=== PATIENT | female | born 1975 | race African-American/Black ===

== ENCOUNTER 2019-02-25 13:04 | Emergency (ER) | payer MEDICAID ==
[2019-02-25 13:27] VITALS: BP 130/86
--- NOTE | 2019-02-25 14:25 | ER Document Report ---
ED Medical Screen (RME) - General Chief Complaint: Abdominal Pain Stated Complaint: ABDOMINAL PAIN Time Seen by Provider: 02/25/19 14:21 Primary Care Provider: DANISH GRIMALDO MD [Primary Care Provider] - Follow up as needed Mode of Arrival: Ambulatory Information source: Patient Notes: 43-year-old female presents to ED for right lower quadrant/pelvic pain for the last 3 days. She states it does not hurt to palpation it is hurts when she moves. She denies any nausea vomiting or diarrhea. She states it does hurt when she walks or moves. She states when she goes to the bathroom it hurts. She states she did takes laxatives yesterday and had some stools today. Patient does have a history of ovarian cyst and tubal . 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 Patient is alert oriented respirations regular and unlabored speaking in full sentences walks with even steady gait. I have greeted and performed a rapid initial assessment of this patient. A comprehensive ED assessment and evaluation of the patient, analysis of test results and completion of medical decision making process will be conducted by an additional ED providers. Dictation of this chart was performed using voice recognition software; therefore, there may be some unintended grammatical errors. TRAVEL OUTSIDE OF THE [place] IN LAST 30 DAYS: No - Related Data Allergies/Adverse Reactions: cinoxate [From Sunblock] Adverse Reaction (Verified 01/30/15 08:02) homosalate [From Sunblock] Adverse Reaction (Verified 01/30/15 08:02) octinoxate [From Sunblock] Adverse Reaction (Verified 01/30/15 08:02) oxybenzone [From Sunblock] Adverse Reaction (Verified 01/30/15 08:02) padimate O [From Sunblock] Adverse Reaction (Verified 01/30/15 08:02) titanium dioxide [From Sunblock] Adverse Reaction (Verified 01/30/15 08:02) Past Medical History - Social History Frequency of alcohol use: Social Drug Abuse: None Renal/ Medical History: Reports: Hx Ovarian Cysts. Denies: Hx Peritoneal Dialysis Past Surgical History: Reports: Hx Section, Hx Gynecologic Surgery - left ovarian cyst, Hx Tubal Ligation - Immunizations Hx Diphtheria, Pertussis, Tetanus Vaccination: Yes Physical Exam - Vital signs Vitals: Temp Pulse Resp BP Pulse Ox 98.4 F 85 18 130/86 H 99 02/25/19 13:26 02/25/19 13:26 02/25/19 13:26 02/25/19 13:26 02/25/19 13:26 Course - Vital Signs Vital signs: Temp Pulse Resp BP Pulse Ox 98.4 F 85 18 130/86 H 99 02/25/19 13:26 02/25/19 13:26 02/25/19 13:26 02/25/19 13:26 02/25/19 13:26 Doctor's Discharge - Discharge Referrals: DANISH GRIMALDO MD [Primary Care Provider] - Follow up as needed
[2019-02-25 14:49] LABS: ABSOLUTE EOSINOPHILS # (AUTO) 0.1 10^3/uL (0.0-0.6); ABSOLUTE LYMPHOCYTES (AUTO) 2.3 10^3/uL (0.5-4.7); ABSOLUTE MONOCYTES (AUTO) 0.6 10^3/uL (0.1-1.4); BASOPHILS % (AUTO) 0.4 % (0-2); EOSINOPHILS % (AUTO) 1.2 % (0-6); HEMATOCRIT 32.2 % (36.0-47.0); HEMOGLOBIN 10.8 g/dL (12.0-15.5); LYMPHOCYTES % (AUTO) 28.5 % (13-45); MEAN CORPUSCULAR HEMOGLOBIN 29.5 pg (27.0-33.4); MEAN CORPUSCULAR HGB CONC 33.5 g/dL (32.0-36.0); MEAN CORPUSCULAR VOLUME 88 fl (80-97); MONOCYTES % (AUTO) 7.5 % (3-13); PLATELET COUNT 294 10^3/uL (150-450); RED BLOOD COUNT 3.65 10^6/uL (3.72-5.28); RED CELL DISTRIBUTION WIDTH 13.3 % (11.5-14.0); SEGMENTED NEUTROPHILS % (AUTO) 62.4 % (42-78); TOTAL CELLS COUNTED % (AUTO) 100 %; WHITE BLOOD COUNT 8.1 10^3/uL (4.0-10.5)
[2019-02-25 15:11] LABS: ALANINE AMINOTRANSFERASE 13 U/L (9-52); ALBUMIN 3.8 g/dL (3.5-5.0); ALKALINE PHOSPHATASE 70 U/L (38-126); ANION GAP 9 (5-19); ASPARTATE AMINO TRANSFERASE 14 U/L (14-36); BILIRUBIN,DIRECT 0.2 mg/dL (0.0-0.4); BILIRUBIN,TOTAL 0.2 mg/dL (0.2-1.3); BLOOD UREA NITROGEN 10 mg/dL (7-20); CARBON DIOXIDE 28 mmol/L (22-30); CHLORIDE 103 mmol/L (98-107); GLUCOSE 90 mg/dL (75-110); POTASSIUM 3.3 mmol/L (3.6-5.0); SODIUM 140.2 mmol/L (137-145); TOTAL PROTEIN 7.3 g/dL (6.3-8.2)
--- NOTE | 2019-02-25 15:54 | RADIOLOGY REPORT (SQ) ---
EXAM DESCRIPTION: U/S NON-OB PELVIS TV W/O DOP COMPLETED DATE/TIME: 02/25/2019 3:41 pm REASON FOR STUDY: right pelvic pain COMPARISON: None. TECHNIQUE: Dynamic and static grayscale images acquired of the pelvis via transvaginal approach and recorded on PACS. Additional selected color Doppler and spectral images recorded. LIMITATIONS: None. FINDINGS: UTERUS: Uterus is heterogeneous in echotexture. There is a small fundal fibroid measured under 2 cm. ENDOMETRIAL STRIPE: IUD is in place. There are echogenic foci within the endometrium probably repres enting calcification. CERVIX: No nabothian cysts. RIGHT OVARY AND DOPPLER: There is a small complex cyst measured 1.7 x 1.3 x 1.3 cm. There is normal flow. LEFT OVARY AND DOPPLER: There is a small complex left ovarian cyst measured 2.2 x 1.4 x 1.6 cm. Norm al flow. FREE FLUID: There is a small amount of free fluid present. OTHER: No other significant finding. MEASUREMENTS: UTERUS: 8.2 x 5.9 x 5.0 cm. ENDOMETRIAL STRIPE: 5.8 mm. RIGHT OVARY: 4.9 x 2.7 x 1.5 cm. LEFT OVARY: 3.1 x 2.5 x 1.9 cm. IMPRESSION: Small complex bilateral ovarian cysts as described. The largest is on the left and hank ures 2.2 x 1.4 x 1.[address] cm[address] is in place. There is a small amount of free fluid in the posterior cu l-de-sac. TECHNICAL DOCUMENTATION: JOB ID: [id number] [employer]- All Rights Reserved Reading location - IP/workstation name: [email or web address]
--- NOTE | 2019-02-25 16:53 | ER Document Report ---
ED General - General Chief Complaint: Abdominal Pain Stated Complaint: ABDOMINAL PAIN Time Seen by Provider: 02/25/19 14:21 Primary Care Provider: DANISH GRIMALDO MD [ACTIVE STAFF] - Follow up in 1 week Mode of Arrival: Ambulatory TRAVEL OUTSIDE OF THE [place] IN LAST 30 DAYS: No - HPI Notes: 43-year-old female to the emergency department with complaints of right-sided lower abdominal pain that began 3 days ago. She states that she thinks she may be constipated. She states that the pain feels mainly like pressure. She states it does not hurt when she pushes on it. She states it hurts more with movement. She states she attempted laxatives last night. She had an unsatisfactory bowel movement last night and this morning. She denies any fevers, chills, chest pain, shortness of breath, urinary complaints, vaginal discharge, headaches. She does admit to a history of ovarian cysts. She states that she has been taking BC powder for her pain and it does help her. - Related Data Allergies/Adverse Reactions: cinoxate [From Sunblock] Adverse Reaction (Verified 01/30/15 08:02) homosalate [From Sunblock] Adverse Reaction (Verified 01/30/15 08:02) octinoxate [From Sunblock] Adverse Reaction (Verified 01/30/15 08:02) oxybenzone [From Sunblock] Adverse Reaction (Verified 01/30/15 08:02) padimate O [From Sunblock] Adverse Reaction (Verified 01/30/15 08:02) titanium dioxide [From Sunblock] Adverse Reaction (Verified 01/30/15 08:02) Past Medical History - General Information source: Patient - Social History Smoking Status: Never Smoker Frequency of alcohol use: Social Drug Abuse: None Family History: Reviewed & Not Pertinent Patient has suicidal ideation: No Patient has homicidal ideation: No Renal/ Medical History: Reports: Hx Ovarian Cysts. Denies: Hx Peritoneal Dialysis Past Surgical History: Reports: Hx Section, Hx Gynecologic Surgery - left ovarian cyst, Hx Tubal Ligation - Immunizations Hx Diphtheria, Pertussis, Tetanus Vaccination: Yes Review of Systems - Review of Systems Constitutional: denies: Chills, Fever EENT: No symptoms reported Cardiovascular: denies: Chest pain, Palpitations, Syncope, Dizziness, Lightheaded Respiratory: denies: Cough, Short of breath Gastrointestinal: See HPI, Abdominal pain, Constipation. denies: Diarrhea, Nausea, Vomiting, Poor appetite, Poor fluid intake Genitourinary: denies: Frequency Female Genitourinary: denies: Vaginal bleeding Musculoskeletal: No symptoms reported Skin: No symptoms reported Hematologic/Lymphatic: No symptoms reported Neurological/Psychological: No symptoms reported -: Yes All other systems reviewed and negative Physical Exam - Vital signs Vitals: Temp Pulse Resp BP Pulse Ox 98.4 F 85 18 130/86 H 99 02/25/19 13:26 02/25/19 13:26 02/25/19 13:26 02/25/19 13:26 02/25/19 13:26 Interpretation: Normal - General General appearance: Appears well, Alert - HEENT Head: Normocephalic, Atraumatic Eyes: Normal Pupils: PERRL - Respiratory Respiratory status: No respiratory distress Chest status: Nontender Breath sounds: Normal Chest palpation: Normal - Cardiovascular Rhythm: Regular Heart sounds: Normal auscultation Murmur: No - Abdominal Inspection: Normal, Obese Distension: No distension. No: Tympanitic Bowel sounds: Normal Tenderness: Nontender - The abdomen is soft, nontender with palpation. There is negative McBurney's point. There is no right lower quadrant tenderness to palpation. There is no Loja sign. There is no guarding, rebound, CVA tenderness. No: McBurney's point, Loja's sign, Guarding, Rebound Organomegaly: No organomegaly - Back Back: Normal, Nontender - Extremities General lower extremity: Wai's sign - Neurological Neuro grossly intact: Yes Cognition: Normal Orientation: AAOx4 [place] Coma Scale Eye Opening: Spontaneous [place] Coma Scale Verbal: Oriented [place] Coma Scale Motor: Obeys Commands Gennaro Coma Scale Total: 15 Speech: Normal Motor strength normal: LUE, RUE, LLE, RLE Sensory: Normal - Psychological Associated symptoms: Normal affect, Normal mood - Skin Skin Temperature: Warm Skin Moisture: Dry Skin Color: Normal Course - Re-evaluation Re-evalutation: Progress: Noted patient's ultrasound but she is really not very tender on abdominal exam and she discusses a more constipation/bowel movement disorder. Will send for plain film x-ray to evaluate. Reviewed x-raysthere is a nonobstructive nonspecific bowel gas pattern. 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 On discharge her abdomen remains soft. We will send home with Colace and magnesium citrate. I have encouraged her to push fluids and increase her fiber. We will have her follow with her primary care physician at the beginning of next week. I have encouraged her to return in the next 8 to 24 hours of her symptoms worsen with fevers, chills, worsening abdominal pain, vomiting, blood in vomit, blood in stool, or any other concerns. - Vital Signs Vital signs: Temp Pulse Resp BP Pulse Ox 98.2 F 80 18 130/86 H 100 02/25/19 17:56 02/25/19 17:56 02/25/19 17:56 02/25/19 13:26 02/25/19 17:56 - Laboratory Result Diagrams: 02/25/19 14:25 02/25/19 14:25 Laboratory results interpreted by me: 02/25/19 02/25/19 14:25 14:25 RBC 3.65 L Hgb 10.8 L Hct 32.2 L Potassium 3.3 L - Diagnostic Test Radiology reviewed: Image reviewed, Reports reviewed Discharge - Discharge Clinical Impression: Right sided abdominal pain, Bowel movement symptom Ovarian cyst Qualifiers: Laterality: bilateral Qualified Code(s): N83.201 - Unspecified ovarian cyst, right side Condition: Stable Disposition: HOME, SELF-CARE Instructions: Abdominal Pain ([facility]) Additional Instructions: ABDOMINAL PAIN: There are many causes of abdominal pain. Pain can mean a serious problem requiring surgery (such as appendicitis). It can also be an innocent problem that goes away on its own (such as a viral infection). Often, time must pass to determine the cause of pain. The physician does not feel that hospitalization is necessary, at present. Things may change within the next 24 hours. Call the doctor or come back for re- examination if any problems occur, such as: (1) Pain that becomes more severe, steady, or becomes concentrated in one specific area. Also, pain that is more severe with movement or coughing. (2) Vomiting that persists or becomes more frequent. (3) Blood in the vomitus, urine, or bowel movements. Blood in the stool may have a tarry or black appearance. (4) Shaking chills or fever greater than 100 degrees F. (5) The abdomen becomes more distended or swollen. (6) Bowel movements cease. (7) Failure to improve as expected. NORMAL EXAM AND WORKUP: At this time, your examination and workup show no significant abnormality. No significant abnormal physical findings are noted. All laboratory, EKG, and imaging (x-ray, CT scans, ultrasound) studies that were ordered show no significant abnormality. Although your examination and all studies that were ordered showed no significant abnormal finding, there are no examinations and no studies that are 100% accurate. There is always the possibility that some abnormality could exist and not be detected with physical examination or within the limits and capabilities of laboratory and other studies. You should return or follow up as you were instructed on your visit today for further evaluation if your symptoms do not resolve. FOLLOW-UP CARE: If you have been referred to a physician for follow-up care, call the physicians office for an appointment as you were instructed or within the next two days. If you experience worsening or a significant change in your symptoms, notify the physician immediately or return to the Emergency Department at any time for re-evaluation. Prescriptions: Docusate Sodium [Colace] 100 mg PO BID #20 capsule Magnesium Citrate 296 ml PO ONCE PRN #[id number] solution PRN Reason: Referrals: DANISH GRMIALDO MD [ACTIVE STAFF] - Follow up in 1 week
--- NOTE | 2019-02-25 18:34 | RADIOLOGY REPORT (SQ) ---
EXAM DESCRIPTION: ABDOMEN 2 VIEWS COMPLETED DATE/TIME: 02/25/2019 5:50 pm REASON FOR STUDY: abdominal pressure/pain COMPARISON: None. NUMBER OF VIEWS: One view. TECHNIQUE: Supine radiographic image of the abdomen acquired. LIMITATIONS: None. FINDINGS: BOWEL GAS PATTERN: Non-obstructive bowel gas pattern. No dilated loops. CALCIFICATIONS: No suspicious calcifications. SOFT TISSUES: No gross mass or suggestion of organomegaly. HARDWARE: IUD present in expected position. BONES: No acute fracture. No worrisome bone lesions. OTHER: No other significant finding. IMPRESSION: NO RADIOGRAPHIC EVIDENCE FOR ACUTE ABDOMINAL DISEASE. TECHNICAL DOCUMENTATION: JOB ID: [id number] [place]-72 2010 [employer]- All Rights Reserved Reading location - IP/workstation name: [email or web address]
== END 2019-02-25 17:56 | disposition home or self-care (01) ==
LOC: ER 13:04
DX: K59.00 Constipation, unspecified (principal); N83.201 Unspecified ovarian cyst, right side; N83.202 Unspecified ovarian cyst, left side
CPT/HCPCS: 36415; 74019; 76830; 80053; 84703; 85025; 99284

== ENCOUNTER 2019-04-07 07:29 | Emergency (ER) | payer MEDICAID ==
--- NOTE | 2019-04-07 08:25 | ER Document Report ---
HPI - HPI Patient complains to provider of: right flank pain Time Seen by Provider: 04/07/19 08:04 Onset/Duration: Constant Quality of pain: Cramping, Fullness Severity: Moderate Pain Level: 3 Context: 43 yr old female patient, with the listed pmh, here for RUQ abd/side pain that radiates to her right flank pain x 3 days. hx of similar before in the past and has seen GI, Dr. Jang, for this about 3wks ago who did and EGD and colonoscopy and she was told everything was normal other than some gastritis and she was started on linzess for her chronic constipation and also omeprazole. states sx haven't improved. she does still use bc powders. No abdominal surgeries. she does have an IUD. No history of fibroids, endometriosis, or renal stones. Normal bowel movements now. No UTI symptoms. No URI symptoms. No recent antibiotics or steroids. No history of diabetes or asthma. No vaginal discharge/complaints/lesions or concerns for STDs and does not want a pelvic exam. No ripping or tearing sensation. Hasn't taken anything else for her symptoms. No other excessive NSAID use, Tylenol use, or EtOH. No prior history of gallbladder disease, pancreatitis, ulcers, GI bleed IBS, Crohn's, or UC. no change in color or caliber or stool. no blood thinners. no fall or trauma. states pain is worse with moving and sitting up. pain got worse after she ate some hot fries last night. called dr jang's office and they told her to come in to get a CT scan of her abdomen/pelvis per pt. no other associated sx. Similar symptoms previously: Yes Recently seen / treated by doctor: Yes - ROS Systems Reviewed and Negative: Yes All other systems reviewed and negative - to include 10 systems, unless mentioned in the hpi - REPRODUCTIVE Reproductive: DENIES: : Past Medical History - General Information source: Patient - Social History Smoking Status: Never Smoker Frequency of alcohol use: Occasional Drug Abuse: None Family History: Reviewed & Not Pertinent Patient has suicidal ideation: No Patient has homicidal ideation: No Endocrine Medical History: Reports: None Renal/ Medical History: Reports: Hx Ovarian Cysts. Denies: Hx Kidney Stones, Hx Peritoneal Dialysis GI Medical History: Reports: Hx Gastritis, Hx Irritable Bowel, Hx Colonoscopy, Hx Endoscopy Past Surgical History: Reports: Hx Section, Hx Gynecologic Surgery - left ovarian cyst, Hx Tubal Ligation - Immunizations Immunizations up to date: Yes Hx Diphtheria, Pertussis, Tetanus Vaccination: Yes Vertical Provider Document - CONSTITUTIONAL Exam Limitations: No Limitations General Appearance: No Apparent Distress Notes: >>>> PHYSICAL_EXAM: GENERAL_APPEARANCE: well_nourished, alert, cooperative, no_acute_distress, no_obvious_discomfort. Pleasant, middle aged black female, smiling, speaking in full sentences, in no sign of pain or resp distress, easily sitting up, no one is with her VITALS: reviewed, see vital signs table. HEAD: normocephalic, atraumatic. no dixon signs. no raccoon eyes. EYES: PERRL, EOMI, (-)scleral icterus. NOSE: no_nasal_discharge. MOUTH: (-)decreased moisture. THROAT: no_tonsilar_inflammation/hypertrophy/exudate NECK: supple, no_neck_tenderness, full rom. full strength. no meningeal signs. BACK: no midline_back_tenderness. no step offs or deformities CHEST_WALL: no_chest_tenderness. LUNGS: no_wheezing, (-)accessory muscle use, good air exchange bilateral. HEART: normal_rate, normal_rhythm, ABDOMEN: normal_BS, soft, abdomen-diffuse, mildly ttp in the right upper quadrant and right side of abd and over right distal lateral ribs, no crepitation, no rash, no overlying skin changes, (-)guarding, (-)rebound, no distension or peritoneal signs. neg murphys. neg mcburneys. no cva tenderness. neg heel strike. neg obturator. neg psoas. neg rovsign. PELVIC: deferred RECTAL: deferred EXTREMITIES: strength 5/5 in all_extremities, good pulses in all_extremities, no_edema, no_swelling\tenderness. full rom. normal gait. 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 brisk cap refill. SKIN: warm, dry, good_color, no_rash. no grossly visible overlying skin changes to suggest trauma NEURO: motor_intact, sensory_intact. MENTAL_STATUS: normal_affect, speech_clear, oriented_X_3, responds_appropri ately to questions. - INFECTION CONTROL TRAVEL OUTSIDE OF THE [place] IN LAST 30 DAYS: No Course - Re-evaluation Re-evalutation: 04/07/19 08:11 pt here for ruq/side/flank pain x 3 days. sent over by her GI doc for a CT abd/pelv, labs were unremarkable. ct abd/pelv with IV contrast showed a small calcified stone in the gallbladder neck without any other acute findings and was otherwise neg per rad and reviewed by myself. GB US was then done to r/o acute GB and this just showed cholelithiasis without acute cholecystitis per rad and reviewed by myself. she responded well to tx listed. serial abd exams remain benign. advised sx care. bland diet. drink plenty of fluids. advised to f/u with pcp/gi in 1-2 days. return for any worsening symptoms. vss. well appearing. satting well on ra. neurononfocal. pt understands and agrees to plan. On reexam, pt improved with tx listed. remained stable. nontoxic. well appearing. pain controlled. tolerating po. requesting to go home. serial abd exams remain benign. case discussed with ER Attending, Dr. Salazar, who directed and agrees with plan of care and advised no further workup indicated at this time and pt is stable for dc home with close f/u with pcp/specialist. Documentation achieved through voice recording which my lead to some occasional accidental typographical errors. Extensive efforts have been made to proof read documentation to make sure these are the least as possible. 04/07/19 08:35 04/07/19 13:07 Category Date Time Status CT ABD/PELVIS WITH IV ONLY [CT] Stat Exams 04/07/19 08:27 Ordered Gallbladder Ultrasound [U/S ABDOMEN LIMITED W/O DOP] [ Exams 04/07/19 11:07 Ordered US] Stat CBC WITH DIFF [HEME] Stat Lab 04/07/19 08:12 Ordered COMPREHENSIVE METABOLIC PANEL [CHEM] Stat Lab 04/07/19 08:12 Ordered HCG QUALITATIVE, URINE [URIN] Stat Lab 04/07/19 08:12 Uncollected LIPASE [CHEM] Stat Lab 04/07/19 08:12 Ordered URINALYSIS [URIN] Stat Lab 04/07/19 08:12 Uncollected Ketorolac Tromethamine [Toradol Inj/Pf 30 mg/1 ml Sdv] Med 04/07/19 08:28 Once 30 mg IV NOW ONE Normal Saline 1000 ml [NaCl 0.9% 1000 ml IV Soln] 1,000 Med 04/07/19 08:27 Ordered ml IV BOLUS Ondansetron HCl/Pf [Zofran Inj/Pf 4 mg/2 ml Sdv] Med 04/07/19 08:28 Once 4 mg IV NOW ONE - Vital Signs Vital signs: Temp Pulse Resp BP Pulse Ox 98.2 F 74 14 130/86 H 99 04/07/19 07:36 04/07/19 07:36 04/07/19 07:36 04/07/19 07:36 04/07/19 07:36 04/07/19 13:10 Temp Pulse Resp BP Pulse Ox 04/07/19 07:36 98.2 F 74 14 130/86 H 99 - Laboratory Result Diagrams: 04/07/19 08:40 04/07/19 08:40 Laboratory results interpreted by me: 04/07/19 13:10 Labs- Entire Visit 04/07/19 04/07/19 04/07/19 08:40 08:40 08:40 WBC 6.6 RBC 3.95 Hgb 11.5 L Hct 35.0 L MCV 89 MCH 29.0 MCHC 32.8 RDW 13.7 Plt Count 287 Lymph % (Auto) 28.9 [place] % (Auto) 7.3 Eos % (Auto) 1.7 Baso % (Auto) 1.1 Absolute Neuts (auto) 4.0 Absolute Lymphs (auto) 1.9 Absolute Monos (auto) 0.5 Absolute Eos (auto) 0.1 Absolute Basos (auto) 0.1 Seg Neutrophils % 61.0 Sodium 139.5 Potassium 4.1 Chloride 104 Carbon Dioxide 25 Anion Gap 11 BUN 13 Est GFR ( Amer) > 60 Est GFR (MDRD) Non-Af > 60 Glucose 83 Calcium 9.1 Total Bilirubin 0.5 Direct Bilirubin 0.2 Neonat Total Bilirubin Not Reportable Neonat Direct Bilirubin Not Reportable Neonat Indirect Bili Not Reportable AST 20 ALT 9 Alkaline Phosphatase 68 Total Protein 7.9 Albumin 4.3 Lipase 86.9 Urine Color Urine Appearance Urine pH Ur Specific [place] Urine Protein Urine Glucose (UA) Urine Ketones Urine Blood Urine Nitrite Urine Bilirubin Urine Urobilinogen Ur Leukocyte Esterase Urine WBC (Auto) Urine RBC (Auto) U Hyaline Cast (Auto) Squamous Epi Cells Auto Urine Mucus (Auto) Serum Creatinine 0.74 Urine Ascorbic Acid Urine HCG, Qual 04/07/19 08:40 WBC RBC Hgb Hct MCV MCH MCHC RDW Plt Count Lymph % (Auto) [place] % (Auto) Eos % (Auto) Baso % (Auto) Absolute Neuts (auto) Absolute Lymphs (auto) Absolute Monos (auto) Absolute Eos (auto) Absolute Basos (auto) Seg Neutrophils % Sodium Potassium Chloride Carbon Dioxide Anion Gap BUN Est GFR ( Amer) Est GFR (MDRD) Non-Af Glucose Calcium Total Bilirubin Direct Bilirubin Neonat Total Bilirubin Neonat Direct Bilirubin Neonat Indirect Bili AST ALT Alkaline Phosphatase Total Protein Albumin Lipase Urine Color YELLOW Urine Appearance CLEAR Urine pH 5.0 Ur Specific [place] 1.019 Urine Protein NEGATIVE Urine Glucose (UA) NEGATIVE Urine Ketones NEGATIVE Urine Blood NEGATIVE Urine Nitrite NEGATIVE Urine Bilirubin NEGATIVE Urine Urobilinogen NEGATIVE Ur Leukocyte Esterase NEGATIVE Urine WBC (Auto) 1 Urine RBC (Auto) 1 U Hyaline Cast (Auto) 1 Squamous Epi Cells Auto 2 Urine Mucus (Auto) OCC Serum Creatinine Urine Ascorbic Acid NEGATIVE Urine HCG, Qual NEGATIVE - Diagnostic Test Radiology reviewed: Image reviewed, Reports reviewed Radiology results interpreted by me: 04/07/19 13:10 Abdomen/Pelvis CT 04/07/19 08:27 IMPRESSION: 1. Trace free fluid within the pelvis, likely physiologic. 2. No other evidence of acute intra-abdominal/pelvic process. Abdomen Ultrasound 04/07/19 11:07 IMPRESSION: Small gallstones in the gallbladder. No gallbladder wall thickening. No pericholecystic fluid. No biliary ductal dilation. No acute ultrasound findings of the right upper quadrant to explain pain. Discharge - Discharge Clinical Impression: Biliary colic Cholelithiasis Qualifiers: Cholelithiasis location: gallbladder Cholecystitis presence: without cho lecystitis Biliary obstruction: without biliary obstruction Qualified Code(s): K80.20 - Calculus of gallbladder without cholecystitis without obstruction Abdominal pain Qualifiers: Abdominal location: right upper quadrant Qualified Code(s): R10.11 - Right upper quadrant pain Condition: Good Disposition: HOME, SELF-CARE Instructions: Abdominal Pain ([facility]), Gallbladder Disease ([facility]) Additional Instructions: Follow-up with PCP/GI in 1 to 2 days. Return for any worsening symptoms. tylenol as needed for any pain or fever if not allergic. take the medication as prescribed. drink plenty of fluids. bland diet. Referrals: SAURABH JANG MD [ACTIVE STAFF] - Follow up tomorrow BLAIRE HESS MD [Primary Care Provider] - Follow up tomorrow
[2019-04-07] MEDS ORDERED: NORMAL SALINE 1000 ML 1,000 ML IV ONE (08:27)
[2019-04-07] MEDS ORDERED: ONDANSETRON HCL INJ/PF 4 MG/2 ML SDV IV ONE (08:28)
[2019-04-07] MEDS ORDERED: KETOROLAC TROMETHAMINE INJ/PF 30 MG/1 ML SDV IV ONE (08:28)
[2019-04-07 09:19] LABS: APPEARANCE,URINE CLEAR; BILIRUBIN,URINE NEGATIVE (NEGATIVE); COLOR,URINE YELLOW; GLUCOSE, URINE NEGATIVE (NEGATIVE); KETONES,URINE NEGATIVE (NEGATIVE); LEUKOCYTE ESTERASE,URINE NEGATIVE (NEGATIVE); NITRITE,URINE NEGATIVE (NEGATIVE); PROTEIN,URINE NEGATIVE (NEGATIVE); URINE SPECIFIC GRAVITY 1.019; UROBILINOGEN,URINE NEGATIVE mg/dL (<2.0)
[2019-04-07 09:28] LABS: ALBUMIN 4.3 g/dL (3.5-5.0); ALKALINE PHOSPHATASE 68 U/L (38-126); ASPARTATE AMINO TRANSFERASE 20 U/L (14-36); BILIRUBIN,DIRECT 0.2 mg/dL (0.0-0.4); BILIRUBIN,TOTAL 0.5 mg/dL (0.2-1.3); TOTAL PROTEIN 7.9 g/dL (6.3-8.2)
--- NOTE | 2019-04-07 10:45 | RADIOLOGY REPORT (SQ) ---
EXAM DESCRIPTION: CT ABD/PELVIS WITH IV ONLY COMPLETED DATE/TIME: 04/07/2019 10:33 am REASON FOR STUDY: RUQ and side pain COMPARISON: 02/25/2019 TECHNIQUE: CT scan of the abdomen and pelvis performed using helical scanning technique with dynamic intravenous contrast injection. No oral contrast. Images reviewed with lung, soft tissue, and bone windows. Reconstructed coronal and sagittal MPR images reviewed. Delayed images for evaluation of the urinary system also acquired. All images stored on PACS. All CT scanners at this facility use dose modulation, iterative reconstruction, and/or weight based d osing when appropriate to reduce radiation dose to as low as reasonably achievable (ALARA). [facility]: Dose Right [facility]: CareDose [facility]: Dose Right [facility]: Teradose 4D [facility]: Unique Microguides CONTRAST TYPE AND DOSE: contrast/concentration: Isovue 350.00 mg/ml; Total Contrast Delivered: 98.0 ml; Total Saline Delivered: 40.1 ml RENAL FUNCTION: None required. The patient is less than 50 years old. RADIATION DOSE: CT Rad equipment meets quality standard of care and radiation dose reduction techniq ues were employed. CTDIvol: 7.8 - 8.9 mGy. DLP: 900 mGy-cm.. LIMITATIONS: None. FINDINGS: LOWER CHEST: No significant findings. No nodules or infiltrates. LIVER: Normal size. No masses. No dilated ducts. SPLEEN: Normal size. No focal lesions. PANCREAS: No masses. No significant calcifications. No adjacent inflammation or peripancreatic fluid collections. Pancreatic duct not dilated. GALLBLADDER: Single punctate calcific density within the gallbladder lack, likely calcified stone. N o gallbladder dilation, pericholecystic fluid or wall thickening. ADRENAL GLANDS: No significant masses or asymmetry. RIGHT KIDNEY AND URETER: No definite solid masses. There subcentimeter hypodense cortical lesions, l ikely cyst but difficult to characterize secondary to size. No significant calcifications. No hyd ronephrosis or hydroureter. LEFT KIDNEY AND URETER: No solid masses. No significant calcifications. No hydronephrosis or hydr oureter. AORTA AND VESSELS: No aneurysm. No dissection. Renal arteries, SMA, celiac without stenosis. RETROPERITONEUM: No retroperitoneal adenopathy, hemorrhage or masses. BOWEL AND PERITONEAL CAVITY: No masses or inflammatory changes. No free fluid or peritoneal masses. APPENDIX: Normal. PELVIS: Trace free fluid within the pelvis, likely physiologic. Decompressed urinary bladder. Femin ine hygiene product within the vaginal canal. Retroverted uterus with IUD within the uterine canal. ABDOMINAL WALL: No masses. No hernias. BONES: No significant or acute findings. OTHER: No other significant finding. IMPRESSION: 1. Trace free fluid within the pelvis, likely physiologic. 2. No other evidence of acute intra-abdominal/pelvic process. TECHNICAL DOCUMENTATION: JOB ID: [id number] Quality ID # [id number]: Final reports with documentation of one or more dose reduction techniques (e.g., Au tomated exposure control, adjustment of the mA and/or kV according to patient size, use of iterative reconstruction technique) 2010 [employer]- All Rights Reserved Reading location - IP/workstation name: [email or web address]
--- NOTE | 2019-04-07 12:43 | RADIOLOGY REPORT (SQ) ---
EXAM DESCRIPTION: U/S ABDOMEN LIMITED W/O DOP COMPLETED DATE/TIME: 04/07/2019 12:28 pm REASON FOR STUDY: ruq pain COMPARISON: None. TECHNIQUE: Dynamic and static grayscale images acquired of the abdomen and recorded on PACS. Additio kenyatta selected color Doppler and spectral images recorded. LIMITATIONS: None. FINDINGS: PANCREAS: No masses. Visualized pancreatic duct normal caliber. LIVER: No masses. Echotexture normal. LIVER VASCULATURE: Normal directional flow of the main portal vein and hepatic veins. GALLBLADDER: Small gallstones in the gallbladder. Normal wall thickness. No pericholecystic fluid. ULTRASOUND-DETECTED HENSON'S SIGN: Negative. INTRAHEPATIC DUCTS AND COMMON DUCT: CBD and intrahepatic ducts normal caliber. No filling defects. INFERIOR VENA CAVA: Normal flow. AORTA: No aneurysm. RIGHT KIDNEY: Normal size. Normal echogenicity. No solid or suspicious masses. No hydronephrosis. No calcifications. PERITONEAL AND RIGHT PLEURAL SPACE: No ascites or effusions. OTHER: No other significant findings. IMPRESSION: Small gallstones in the gallbladder. No gallbladder wall thickening. No pericholecysti c fluid. No biliary ductal dilation. No acute ultrasound findings of the right upper quadrant to ex plain pain. TECHNICAL DOCUMENTATION: JOB ID: [id number] [employer]- All Rights Reserved Reading location - IP/workstation name: [email or web address]
[2019-04-07 15:19] LABS: ANION GAP 11 (5-19); BLOOD UREA NITROGEN 13 mg/dL (7-20); CALCIUM 9.1 mg/dL (8.4-10.2); CARBON DIOXIDE 25 mmol/L (22-30); CHLORIDE 104 mmol/L (98-107); GLUCOSE 83 mg/dL (75-110); POTASSIUM 4.1 mmol/L (3.6-5.0)
[2019-04-07 15:32] LABS: ABSOLUTE BASOPHILS # (AUTO) 0.1 10^3/uL (0.0-0.2); ABSOLUTE EOSINOPHILS # (AUTO) 0.1 10^3/uL (0.0-0.6); ABSOLUTE LYMPHOCYTES (AUTO) 1.9 10^3/uL (0.5-4.7); ABSOLUTE MONOCYTES (AUTO) 0.5 10^3/uL (0.1-1.4); BASOPHILS % (AUTO) 1.1 % (0-2); EOSINOPHILS % (AUTO) 1.7 % (0-6); HEMOGLOBIN 11.5 g/dL (12.0-15.5); LYMPHOCYTES % (AUTO) 28.9 % (13-45); MEAN CORPUSCULAR HGB CONC 32.8 g/dL (32.0-36.0); MEAN CORPUSCULAR VOLUME 89 fl (80-97); MONOCYTES % (AUTO) 7.3 % (3-13); PLATELET COUNT 287 10^3/uL (150-450); RED BLOOD COUNT 3.95 10^6/uL (3.72-5.28); RED CELL DISTRIBUTION WIDTH 13.7 % (11.5-14.0); TOTAL CELLS COUNTED % (AUTO) 100 %; WHITE BLOOD COUNT 6.6 10^3/uL (4.0-10.5)
[2019-04-07 18:03] VITALS: BP 138/92
== END 2019-04-07 13:31 | disposition home or self-care (01) ==
LOC: ER 07:29
DX: K80.20 Calculus of gallbladder without cholecystitis without obstruction (principal); K59.00 Constipation, unspecified; K29.70 Gastritis, unspecified, without bleeding; R10.11 Right upper quadrant pain; Z98.890 Other specified postprocedural states; Z97.5 Presence of (intrauterine) contraceptive device
CPT/HCPCS: 36415; 83690; 85025; 81025; 80053; 81001; 76705; 74177; J1885; J2405; J7030; 96361; 96374; 96375; 99284

== ENCOUNTER 2019-05-13 08:30 | Day surgery (SDC) | payer MEDICAID ==
[2019-05-03 10:46] LABS: HEMATOCRIT 34.4 % (36.0-47.0); HEMOGLOBIN 11.6 g/dL (12.0-15.5); MEAN CORPUSCULAR HEMOGLOBIN 29.2 pg (27.0-33.4); MEAN CORPUSCULAR HGB CONC 33.7 g/dL (32.0-36.0); MEAN CORPUSCULAR VOLUME 87 fl (80-97); PLATELET COUNT 258 10^3/uL (150-450); RED BLOOD COUNT 3.96 10^6/uL (3.72-5.28); RED CELL DISTRIBUTION WIDTH 13.8 % (11.5-14.0); WHITE BLOOD COUNT 5.8 10^3/uL (4.0-10.5)
[2019-05-03 11:09] LABS: ALBUMIN 4.1 g/dL (3.5-5.0); ALKALINE PHOSPHATASE 65 U/L (38-126); AMYLASE 57 U/L (30-110); ANION GAP 11 (5-19); ASPARTATE AMINO TRANSFERASE 24 U/L (14-36); BILIRUBIN,DIRECT 0.2 mg/dL (0.0-0.4); BILIRUBIN,TOTAL 0.7 mg/dL (0.2-1.3); BLOOD UREA NITROGEN 13 mg/dL (7-20); CALCIUM 9.4 mg/dL (8.4-10.2); CARBON DIOXIDE 25 mmol/L (22-30); CHLORIDE 103 mmol/L (98-107); GLUCOSE 102 mg/dL (75-110); POTASSIUM 3.7 mmol/L (3.6-5.0); TOTAL PROTEIN 7.7 g/dL (6.3-8.2)
[~2019-05-13 08:30] MED LIST: ACETAMINOPHEN 325 MG TABLET PO PRN; CEFAZOLIN 1 GM/D5W RTU 1 GM/50 ML RTUPB IV PRN; LACTATED RINGERS 1000 ML IV PRN; LIDOCAINE 0.5% INJ-PF (5 MG/ML) 50 ML SDV SUBCUT PRN; METRONIDAZOLE 500 MG/NS RTU 500 MG/100 ML RTUPB IV PRN
[2019-05-13] MEDS ORDERED: BUPIVACAINE HCL 0.5%-EPI 1:200000 INJ/PF 30 ML VIAL ONE (10:56)
[2019-05-13] MEDS ORDERED: METRONIDAZOLE 500 MG/NS RTU 500 MG/100 ML RTUPB IV ONE (11:14)
[2019-05-13] MEDS ORDERED: CEFAZOLIN INJ 1 GM VIAL ONE (11:15)
[2019-05-13] MEDS ORDERED: MIDAZOLAM 2 MG/2 ML INJ ONE (12:20)
[2019-05-13] MEDS ORDERED: HYDROMORPHONE HCL INJ/PF 2 MG/ML AMPULE ONE (12:20)
[2019-05-13] MEDS ORDERED: PROPOFOL INJ 200 MG/20 ML VIAL IV ONE (12:21)
[2019-05-13] MEDS ORDERED: OXYCODONE-ACETAMINOPHEN 5-325 MG TABLET PO PRN ×3 (13:20→13:48)
[2019-05-13] MEDS ORDERED: DIPHENHYDRAMINE HCL 50 MG/ML VIAL IV PRN (13:20)
[2019-05-13] MEDS ORDERED: FENTANYL CITRATE INJ/PF 100 MCG/2 ML AMPUL IV PRN ×3 (13:20)
[2019-05-13] MEDS ORDERED: MEPERIDINE HCL/PF INJ 25 MG/1 ML DISP.SYRIN IV PRN (13:20)
[2019-05-13] MEDS ORDERED: ONDANSETRON HCL INJ/PF 4 MG/2 ML SDV IV PRN (13:20)
[2019-05-13] MEDS ORDERED: PROMETHAZINE HCL INJ 25 MG/1 ML VIAL IV PRN ×2 (13:20)
--- NOTE | 2019-05-13 13:46 | Operative Report ---
Nonrecallable Operative Report DATE OF SURGERY: 05/13/19 PREOPERATIVE DIAGNOSIS: chlolelilthiasis POSTOPERATIVE DIAGNOSIS: cholelithiasis OPERATION: laparoscopic cholecystectomy SURGEON: GHANSHYAM CARABALLO ANESTHESIA: GA TISSUE REMOVED OR ALTERED: gallbladder COMPLICATIONS: none ESTIMATED BLOOD LOSS: 10cc. INTRAOPERATIVE FINDINGS: see note PROCEDURE: After obtaining informed consent, the patient was taken to the operating room. General Anesthesia was induced; the arms were extended, and the abdomen was exposed, and prepped and draped in a sterile fashion. Instrumentation was set up for laparoscopic cholecystectomy. Surgical plan and surgical timeout were conducted. A vertical incision was made above the umbilicus, and a verres needle was inserted uneventfully into the peritoneal cavity. Pneumoperitoneum was established. The verres needle was removed and a10 mm trocar was inserted and a10 mm flexible laparoscope was inserted. Visualization of the peritoneal cavity confirmed safe uneventful entry. Under direct visualization 3 additional 5 mm ports were established, one in the subxiphoid position and second in the subcostal position. Visualization of the hepatobiliary anatomy revealed no anatomic variations. A grasper was placed on the fundus of the gallbladder and the gallbladder is elevated over the right surface of the liver; a second grasper was used to grasp the infundibulum of the gallbladder. The neck of the gallbladder and junction with the cystic duct was dissected out. The Cystic artery was in its usual location medial and cephalad to the cystic duct. The cystic artery was surrounded with a right angle clamp, clipped twice proximally and divided with laparoscopic scissors. We now opened the triangle of Calot by dividing the peritoneal reflection on both the medial and lateral sides of the cystic duct infundibular junction. The critical view was obtained. We now milked the cystic duct of any possible stones, clipped the cystic duct approximately 2 times once distally and divided with scissors. The gallbladder was now removed from the undersurface of the liver using hook cautery dissection. Graspers were repositioned and the gallbladder was removed uneventfully from the abdominal cavity through the super umbilical port site incision. The specimen was examined, then passed off to pathology for permanent analysis. We returned to the peritoneal cavity check for bleeding, and evidence of bile leak, and there was none. We Confirmed satisfactory placement of clips on cystic duct and cystic artery were secured . At this point we felt the operation was complete. The subcutaneous tissue was then anesthetized with quarter percent Marcaine Sponge and needle counts are correct. All ports removed under direct visualization pneumoperitoneum evacuated, and 5 mm port wounds closed with 3-0 Vicryl suture, benzoin and Steri-Strips. The patient was extubated, and taken to the recovery room in stable condition.
--- NOTE | 2019-05-13 13:48 | Discharge Summary ---
Discharge Summary (SDC) - Discharge Final Diagnosis: Symptomatic cholelithiasis Date of Surgery: 05/13/19 Condition: Good Referrals: BLAIRE HESS MD [Primary Care Provider] - Discharge Diet: As Tolerated Discharge Activity: Activity As Tolerated Report the Following to Your Physician Immediately: Shortness of Breath, Nausea, Vomiting, Yellow Skin, Redness - Patient is a follow-up in 10 to 14 days
[2019-05-13] MEDS ORDERED: KETOROLAC TROMETHAMINE 60 MG/2 ML SDV ONE (15:06)
[2019-05-13] MEDS ORDERED: LIDOCAINE 2% INJ-PF (20 MG/ML) 2 ML AMPUL ONE (15:06)
[2019-05-13] MEDS ORDERED: NEOSTIGMINE METHYLSULFATE 10 MG/10 ML VIAL ONE (15:06)
[2019-05-13] MEDS ORDERED: GLYCOPYRROLATE 1 MG/5 ML VIAL ONE (15:06)
[2019-05-13] MEDS ORDERED: METOCLOPRAMIDE HCL INJ/PF 10 MG/2 ML SDV ONE (15:06)
[2019-05-13] MEDS ORDERED: ONDANSETRON HCL INJ/PF 4 MG/2 ML SDV ONE (15:06)
[2019-05-13] MEDS ORDERED: DEXAMETHASONE SOD PHOSPHATE INJ 4 MG/1 ML VIAL ONE (15:06)
[2019-05-13] MEDS ORDERED: ROCURONIUM BROMIDE INJ 50 MG/5 ML VIAL IV ONE (15:06)
[2019-05-13 15:46] VITALS: BP 122/74
== END 2019-05-13 15:50 | disposition home or self-care (01) ==
LOC: OROUT 08:30
PROVIDERS: ATTEND Surgery
DX: K80.10 Calculus of gallbladder with chronic cholecystitis without obstruction (principal); Z79.899 Other long term (current) drug therapy; Z01.818 Encounter for other preprocedural examination
CPT/HCPCS: 86900; 86901; 36415 ×2; 86850; 82150; 85027; 81025; 80076; 80048; 88304 ×2; 47562; J2250; J3490 ×5; J0690; J1100; J1885; J2765; J2710; J1170; J2405; J2704; 790